=== PATIENT | male | born 1975 | race Caucasian/White ===

== ENCOUNTER → 2017-02-26 | Outpatient (CLI) | payer BC | END | disposition home or self-care (01) | LOC: GMA 12:51 | PROVIDERS: ATTEND Nurse Practitioner Family | DX: R53.83 Other fatigue (principal) ==

== ENCOUNTER → 2017-03-08 | Outpatient (CLI) | payer BC ==
--- NOTE | 2017-03-09 08:38 | US ---
Study: Abdominal ultrasound. Indication: OTHER GENERAL SYMPTOMS AND SIGNS Comparison: None Technique: Multiplanar, multi sequence sonogram of the abdomen obtained. Findings: Within the right hepatic lobe there is a indeterminate 1.6 cm hypoechoic area which is not clearly a cyst. 4 mm gallbladder polyp noted. No definite stones, collateral thickening, or pericholecystic edema. No intrahepatic biliary ductal dilatation. The common bile duct measures 5 mm in diameter. The bilateral kidneys are appropriate in echogenicity without hydronephrosis or nephrolithiasis. The visualized portions of the aorta and inferior vena cava are normal. The pancreas unremarkable. The spleen is normal. Impression: Small indeterminate lesion in the right hepatic lobe. Correlation with nonemergent liver mass protocol CT abdomen and pelvis with and without IV contrast recommended. 4 mm gallbladder polyp. Electronically signed by: Marcial Jerez MD 03/09/2017 8:37 AM CAREER SERVICES COORDINATOR
== END | disposition home or self-care (01) ==
LOC: US 10:06
PROVIDERS: ATTEND Nurse Practitioner Family
DX: K82.4 Cholesterolosis of gallbladder (principal)